=== PATIENT | male | born 1975 | race Caucasian/White ===

== ENCOUNTER 2019-12-11 11:31 | Outpatient (CLI) | payer OTHER, SELFPAY ==
--- NOTE | 2019-12-11 11:37 | XR_ITS ---
WS: [id number] ANKLE LEFT TECHNIQUE: 3 views of the left ankle CLINICAL INFORMATION: PAIN IN LEFT ANKLE AND JOINTS OF LEFT FOOT COMPARISON: None. FINDINGS: Normal ankle mortise. Talar dome is normal. No visualized fractures. Normal visualized soft tissues. XR/XR ankle LT min 3V* [id number] IMPRESSION: Normal left ankle.
== END 2019-12-11 11:32 | disposition home or self-care (01) ==
LOC: RADWPI 11:36
PROVIDERS: Family Provider Nurse Practitioner; PCP Nurse Practitioner; Visit Provider Nurse Practitioner
DX: M25.572 Pain in left ankle and joints of left foot (principal)
CPT/HCPCS: 73610

== ENCOUNTER → 2023-04-16 14:00 | Outpatient (BNVA) | payer BC, SELFPAY | PROVIDERS: Family Provider Nurse Practitioner; PCP Nurse Practitioner; Visit Provider Nurse Practitioner Family | DX: R63.1 Polydipsia (principal) | CPT/HCPCS: 80053; 80061; 84443; 85025; G0103 ==